=== PATIENT | female | born 1935 | race Caucasian/White ===

== ENCOUNTER 2016-06-11 07:34 | Day surgery (SDC) | payer MEDICARE, BC ==
--- NOTE | ~2016-06-11 | EGD ---
EGD REPORT [facility] [address] [address] NAME: CHELI MIMS : 39 STATUS : REG [facility]#: [id number] AGE: 81 ADM/REG DATE : 06/11/16 MR#: [id number] REPORT SERV DATE: 06/11/16 DICTATED BY: CROW MUNSON DATE: 06/11/16 REPORT STATUS : Draft [facility]ANSCRIBED BY: [facility] DATE: 06/11/16 Endoscopy Center Patient Name: Cheli Mims Date of : 1935 Attending MD: CROW MUNSON MD Procedure Date No Time: 06/11/2016 Procedure: Colonoscopy Indications: FH of Colon Cancer - 1st degree relative Referring MD: JOSE DANIEL CHAU Medicines: as per anesthesia Complications: No immediate complications. Procedure: Pre-Anesthesia Assessment: - ASA Grade Assessment: III - A patient with severe systemic disease. After I obtained informed consent, the scope was passed under direct vision. Throughout the procedure, the patient's blood pressure, pulse, and oxygen saturations were monitored continuously. The PCF [id number] was introduced through the anus and advanced to the cecum, identified by appendiceal orifice and ileocecal valve. The colonoscopy was somewhat difficult due to significant looping and a tortuous colon. The patient tolerated the procedure. The quality of the bowel preparation was adequate to identify polyps. Findings: The perianal and digital rectal examinations were normal. Many small and large-mouthed diverticula were found in the sigmoid colon, in the descending colon and in the transverse colon. Internal hemorrhoids were found during endoscopy and were mild. Impression: - Diverticulosis in the sigmoid colon, in the descending colon and in the transverse colon. - Internal hemorrhoids. Recommendation: - Continue present medications. Procedure Code(s): --- Professional --- 78529, Colonoscopy, flexible, proximal to splenic flexure; diagnostic, with or without collection of specimen(s) by brushing or washing, with or without colon decompression (separate procedure) Diagnosis Code(s): --- Professional --- K64.8, Other hemorrhoids EGD REPORT [facility] [address] [address] NAME: CHELI MIMS : 39 STATUS : REG [facility] PAT#: [id number] AGE: 81 ADM/REG DATE : 06/11/16 MR#: [id number] REPORT SERV DATE: 06/11/16 DICTATED BY: CROW MUNSON. DATE: 06/11/16 REPORT STATUS : Draft TRANSCRIBED BY: [employer] DATE: 06/11/16 K57.30, Diverticulosis of large intestine without perforation or abscess without bleeding Z80.0, Family history of malignant neoplasm of digestive organs CPT copyright 2013 [employer]. All rights reserved. The codes documented in this report are preliminary and upon supervisor carbon [employer] coating review may be revised to meet current compliance requirements. CROW MUNSON MD 06/11/2016 9:44 AM This report has been signed electronically. Number of Addenda: 0 Note Initiated On: 06/11/2016 9:12 AM Scope Withdrawal Time 0 hours 7 minutes 5 seconds [address] [place] [id number]
[~2016-06-11 07:34] MED LIST: CALTRA600D PO; CARTIA XT180 MG/24 PO; HYDROCHLOROT25 MG PO; JANTOVEN1 MG PO; MULTIPLE VIT PO; PEP20 PO; TYLENOL PM PO; V5 PO; ZOCOR10 PO
[2016-06-11 08:02] LABS: INTERNATIONAL NORMAL RATI 1.2 UNITS (-); PROTIME (NOT ORD) 15.2 SEC (12.0-14.5)
== END 2016-06-11 23:59 | disposition home health service (06) ==
LOC: DMU 07:34
PROVIDERS: Anesthesiology; Internal Medicine Gastroenterology
PROC: 0DJD8ZZ Inspection of Lower Intestinal Tract, Via Natural or Artificial Opening Endoscopic (ICD-10-PCS; principal; 2016-06-11 08:30)
DX: Z12.11 Encounter for screening for malignant neoplasm of colon (principal); K64.8 Other hemorrhoids; K57.30 Diverticulosis of large intestine without perforation or abscess without bleeding; I48.0 Paroxysmal atrial fibrillation; I10 Essential (primary) hypertension; E78.5 Hyperlipidemia, unspecified; F41.9 Anxiety disorder, unspecified; M19.90 Unspecified osteoarthritis, unspecified site; E78.00 Pure hypercholesterolemia, unspecified; K21.9 Gastro-esophageal reflux disease without esophagitis; Z86.010 Personal history of colon polyps; Z90.49 Acquired absence of other specified parts of digestive tract; Z80.0 Family history of malignant neoplasm of digestive organs; Z98.890 Other specified postprocedural states
CPT/HCPCS: 85610